=== PATIENT | male | born 1965 | race Caucasian/White ===

== ENCOUNTER 2019-11-07 09:45 | Outpatient (RCR) | payer BC ==
[~2019-11-07 09:45] MED LIST: FOLIC ACID800 MCG PO; GLUCOPHAGE1000 MG PO; NEURONTIN300 MG/CAP PO
== END 2020-01-16 | disposition home or self-care (01) ==
LOC: WSST
DX: R41.840 Attention and concentration deficit (principal); R41.3 Other amnesia